=== PATIENT | female | born 1945 | race Caucasian/White ===

== ENCOUNTER 2018-10-19 10:57 | Inpatient (IN) | payer OTHER ==
[~2018-10-19] VITALS: Ht 154.9 cm; Wt 76.7 kg
[~2018-10-19 10:57] MED LIST: UNK HTN MED
--- NOTE | 2018-10-19 10:59 | NUR ---
PT BIBA ALS TO BED 11
[2018-10-19 11:01] VITALS: BP 136/72
--- NOTE | 2018-10-19 11:04 | NUR ---
Jocelyn mishra in [facility] - 10/19/18 at 1104 by [email or web address] PT BIBA TO BED 11
[2018-10-19] MEDS ORDERED: KETOROLAC 15 MG/ML VIAL IVP ONE (11:15)
--- NOTE | 2018-10-19 11:23 | NUR ---
73/F BIBA C/O L KNEE PAIN S/P FALL ONTO SIDEWALK. DEFORMITY NOTED ON L KNEE. 08/16 PAIN. DENIES HITTING HEAD OR LOC. NO OTHER COMPLAINTS. CMS INTACT. PER PT GOT FYNTANYL 50 MCQ VIA IV AT 10.40. BS 172. HX---DM, HTN, DEMENTIA MEDS---UNKNOWN Addendum: 10/19/18 at 1325 by [email or web address] Amendment undone in EDM - 10/19/18 at 1326 by [email or web address] HX : HTN, DM, DEMENTIA HOME MED: PATIENT & INTEL ANALYST CAN'T REMEMBER.
--- NOTE | 2018-10-19 11:29 | NUR ---
X RAY AT BEDSIDE.
--- NOTE | 2018-10-19 11:37 | NUR ---
REPORTED GIVEN TO VICKY BAJWA
--- NOTE | 2018-10-19 12:15 | NUR ---
[facility] : [phone].
[2018-10-19] MEDS ORDERED: ONDANSETRON 4 MG/2 ML VIAL IVP PRN (13:25)
[2018-10-19] MEDS ORDERED: DEXTROSE 50% 50 ML SYR IVP PRN (13:25)
[2018-10-19] MEDS ORDERED: LORazepam 2 MG/ML VIAL IVP PRN (13:25)
[2018-10-19] MEDS ORDERED: ACETAMINOPHEN 325 MG TAB PO PRN (13:25)
--- NOTE | 2018-10-19 14:20 | NUR ---
Patient will be admitted to care of DR HAYWARD. Admited to TELE. Will go to room 107A. Belongings list completed. Report to ALIYA QUIÑONES.
[2018-10-19] MEDS: NACL 0.9% 1,000 ML IV SCH (14:45)
--- NOTE | 2018-10-19 14:45 | NUR ---
PATIENT ARRIVED ON FLOOR VIA GURNEY, PATIENT ABLE TO TRANSFER HERSELF TO THE BED. PATIENT AOX3, FORGETFUL, HX OF DEMENTIA, DM, HTN. VS WNL. IV SITE PATENT, INTACT AND ASYMPTOMATIC. RESPIRATIONS EVEN AND UNLABORED ON ROOM AIR. CAREGIVER HUMBERTO MACNANDEZ AT BEDSIDE. EXPLAINED TO PATIENT AND CAREGIVER PLAN OF CARE, THEY VERBALIZED UNDERSTANDING. PATIENT ADMITTING DX IS L PATELLAR FX, HAS KNEE BRACE ON. MRSA SCREENING DONE, INITIAL ASSESSMENT DONE. ORIENTED PATIENT TO CALL LIGHT, BED, TV, BATHROOM AND VISITING HOURS. SAFETY PRECAUTIONS IN PLACE, CALL LIGHT WITHIN REACH, BED ON LOWEST SETTING WITH BRAKES AND ALARM ON, WILL CONTINUE TO MONITOR PATIENT.
[2018-10-19 15:00] VITALS: BP 151/66
[2018-10-19] MEDS: HYDROcodone/APAP 5/325 MG 1 TAB TAB PO PRN (15:20)
--- NOTE | 2018-10-19 15:40 | NUR ---
PATIENT FORGETFUL AND IMPULSIVE, USES THE CALL LIGHT LIBERALLY. ALL NEEDS MET AT THIS TIME, PATIENT VOIDED IN BEDPAN, PATIENT CLEANED UP. SAFETY PRECAUTIONS IN PLACE, CALL LIGHT WITHIN REACH, BED ALARM ON, WILL CONTINUE TO MONITOR PATIENT.
--- NOTE | 2018-10-19 15:40 | NUR ---
DR. BLUE, UPDATED HIM ON PATIENT'S CONDITION AND STATUS. HE SAID HE IS CONSULTING ON THE CASE AND WILL BE IN LATER TO SEE THE PATIENT. RN VERBALIZED UNDERSTANDING.
[2018-10-19 16:00] VITALS: BP 151/64
--- NOTE | 2018-10-19 16:40 | NUR ---
DR. BLUE IN TO SEE THE PATIENT. NEW ORDERS IN TO OBTAIN CONSENT FOR OPEN TREATMENT OF LEFT PATELLA FRACTURE. ORDERS NOTED AND WILL BE CARRIED ON.
[2018-10-19] MEDS: BLOOD GLUCOSE MONITORING 1 DEV DEV FS SCH ×2 (16:45→20:28)
--- NOTE | 2018-10-19 17:25 | NUR ---
PATIENT FOUND WITH IV OUT, IV CATHETER INTACT, MINIMAL BLEEDING. NEW IV INSERTED ON LEFT HAND 20G, PATIENT TOLERATED IT. PT C/O PAIN DUE TO KNEE, NORCO PRN GIVEN. SAFETY PRECAUTION IN PLACE, CALL LIGHT WITHIN REACH. WILL CONTINUE TO MONITOR PATIENT.
--- NOTE | 2018-10-19 17:45 | NUR ---
HUMBERTO HA, CAREGIVER WAS CALLED TO OBTAIN CONSENT OVER THE TELEPHONE. TIM POOLE RN SECOND WITNESS. PATIENT FORGETFUL AND KEEPS ON ATTEMPTING TO GET OUT OF BED. WILL CONTINUE TO MONITOR PATIENT.
--- NOTE | 2018-10-19 18:25 | NUR ---
DR BLUE CALLED TO REMIND RN TO FOLLOW UP WITH EKG, CXR, AND LABS. INFORMED DR. BLUE EKG DONE, CXR AND LABS PENDING, WITH CONSENT OBTAINED OVER THE TELEPHONE.
[2018-10-19 18:38] LABS: BASOPHILS # (AUTO) 0.1 K/uL (0.00-0.22); BASOPHILS % (AUTO) 0.5 % (0.0-2.0); EOSINOPHILS # (AUTO) 0.1 K/uL (0-0.4); EOSINOPHILS % (AUTO) 0.8 % (0.0-4.0); HEMATOCRIT 35.9 % (36-48); HEMOGLOBIN 11.7 g/dL (12.0-16.0); LYMPHOCYTES # (AUTO) 3.7 K/uL (2.5-16.5); LYMPHOCYTES % (AUTO) 25.9 % (20.5-51.1); MEAN CORPUSCULAR HEMOGLOBIN 28 pg (27-31); MEAN CORPUSCULAR HGB CONC 33 g/dL (33-37); MEAN CORPUSCULAR VOLUME 85.3 fL (80-94); MONOCYTES % (AUTO) 6.7 % (1.7-9.3); NEUTROPHILS # (AUTO) 9.4 K/uL (1.8-7.7); NEUTROPHILS % (AUTO) 66.1 % (42.2-75.2); PLATELET COUNT (AUTO) 301 K/uL (140-450); RED BLOOD CELL COUNT(AUTO) 4.21 MIL/uL (4.20-5.40); RED CELL DISTRIBUTION WIDTH 13.2 % (11.6-13.7); WHITE BLOOD COUNT (AUTO) 14.3 K/uL (4.8-10.8)
[2018-10-19 19:07] LABS: CARBON DIOXIDE 17.9 mmol/L (21-32); CHLORIDE 106 mmol/L (98-107); CREATININE 1.1 mg/dL (0.6-1.3); GLUCOSE 127 mg/dL (74-106); POTASSIUM 3.9 mmol/L (3.5-5.1); SODIUM SERUM 140 mmol/L (136-145); UREA NITROGEN, BLOOD 27 mg/dL (7-18)
[2018-10-19 19:19] LABS: PROTHROMBIN TIME 10.2 secs (10.8-13.4)
--- NOTE | 2018-10-19 19:27 | NUR ---
REPORT GIVEN TO CAREER GUIDANCE TECHNICIAN RN AT BEDSIDE FOR CONTINUITY OF CARE. PATIENT IN STABLE CONDITION, RESTING IN BED.
--- NOTE | 2018-10-19 19:28 | NUR ---
REPORT RECEIVED FROM AM NURSE AT BEDSIDE. PT IN STABLE CONDITION. AAOX4. INTRODUCED SELF TO PT. BOARD UPDATED. NO COMPLAINTS OF PAIN. NO SOB. IV SITE L HAND 20G RUNNING NS@80ML/HR PATENT AND INTACT. SKIN WARM, DRY, AND INTACT WITH NO OPEN WOUNDS. BED LOCKED IN LOW POSITION. CALL ZACARIAS WITHIN REACH. SAFETY PRECAUTIONS IN PLACE.
[2018-10-19 20:00] VITALS: BP 143/67
--- NOTE | 2018-10-19 20:24 | NUR ---
BS 104. NO INSULIN COVERAGE NEEDED.
--- NOTE | 2018-10-19 21:30 | NUR ---
PULMONARY GROUP CALLED DUE TO PT ASKING FOR SLEEP MEDICATION. TALKED TO DR. FULLER. NEW ORDER OF AMBIEN 5MG PO QHS FOR SLEEP. TORB.
[2018-10-19] MEDS: ZOLPIDEM 5 MG TAB PO PRN (22:17)
--- NOTE | 2018-10-19 22:17 | NUR ---
AMBIEN GIVEN FOR SLEEP. PT TOLERATED WELL.
[2018-10-20] VITALS: BP 131/68
--- NOTE | 2018-10-20 00:30 | NUR ---
PT SLEEPING COMFORTABLY IN BED SUPINE BUT AROUSEABLE. NO S/S OF DISTRESS NOTED. WILL CONTINUE TO MONITOR.
--- NOTE | 2018-10-20 02:15 | NUR ---
PT AWAKE AND ALERT. HAD CONCERNS ABOUT SURGERY TOMORROW. CONCERNS WERE ADDRESSED. PT WAS EDUCATED ABOUT THE SURGERY AND REASSURED ABOUT HER FEELINGS.
[2018-10-20] MEDS: NACL 0.9% 1,000 ML IV SCH ×2 (02:24→14:24)
--- NOTE | 2018-10-20 03:30 | NUR ---
PT SLEEPING COMFORTABLY BUT AROUSEABLE. NO S/S OF DISTRESS NOTED. NO COMPLAINTS OF PAIN. NO SOB. WILL CONTINUE TO MONITOR.
[2018-10-20 04:00] VITALS: BP 135/60
[2018-10-20] MEDS: BLOOD GLUCOSE MONITORING 1 DEV DEV FS SCH ×6 (05:37→21:21)
--- NOTE | 2018-10-20 05:37 | NUR ---
BS 111. NO INSULIN COVERAGE NEEDED.
[2018-10-20 06:44] LABS: BASOPHILS # (AUTO) 0.1 K/uL (0.00-0.22); BASOPHILS % (AUTO) 0.6 % (0.0-2.0); EOSINOPHILS # (AUTO) 0.2 K/uL (0-0.4); EOSINOPHILS % (AUTO) 2.1 % (0.0-4.0); HEMOGLOBIN 10.9 g/dL (12.0-16.0); LYMPHOCYTES # (AUTO) 3.7 K/uL (2.5-16.5); LYMPHOCYTES % (AUTO) 34.3 % (20.5-51.1); MEAN CORPUSCULAR HEMOGLOBIN 28 pg (27-31); MEAN CORPUSCULAR HGB CONC 33 g/dL (33-37); MEAN CORPUSCULAR VOLUME 85.3 fL (80-94); MONOCYTES # (AUTO) 0.9 K/uL (0.8-1.0); MONOCYTES % (AUTO) 8.7 % (1.7-9.3); NEUTROPHILS # (AUTO) 5.8 K/uL (1.8-7.7); NEUTROPHILS % (AUTO) 54.3 % (42.2-75.2); PLATELET COUNT (AUTO) 273 K/uL (140-450); RED BLOOD CELL COUNT(AUTO) 3.87 MIL/uL (4.20-5.40); RED CELL DISTRIBUTION WIDTH 13.2 % (11.6-13.7); WHITE BLOOD COUNT (AUTO) 10.7 K/uL (4.8-10.8)
[2018-10-20 07:10] LABS: ANION GAP 15.8 (8-16); ASPARTATE AMINOTRANSFERASE 18 U/L (15-37); CARBON DIOXIDE 21.2 mmol/L (21-32); CHLORIDE 108 mmol/L (98-107); CREATININE 0.9 mg/dL (0.6-1.3); GLUCOSE 114 mg/dL (74-106); SODIUM SERUM 141 mmol/L (136-145); TOTAL BILIRUBIN 0.6 mg/dL (0.0-1.0); UREA NITROGEN, BLOOD 22 mg/dL (7-18)
[2018-10-20 07:24] LABS: MAGNESIUM 1.8 mg/dL (1.8-2.4)
--- NOTE | 2018-10-20 07:25 | NUR ---
REPORT GIVEN TO AM NURSE AT BEDSIDE. PT IN STABLE CONDITION.
--- NOTE | 2018-10-20 07:30 | NUR ---
RECEIVED PT FROM WELDING SYSTEMS AND EQUIPMENT REPAIRER NURSEBRIAN, PT IS AWAKE AND LYING ON THE BED WITH SIDE RAILS UP AND CALL LIGHT WITHIN REACH, FALL PRECAUTION INITIATED, PT HAS A LEFT HAND G. 20 IV LINE WITH NS AT 80ML/HR INFUSING, PT HASA A LEFT KNEE PATELLAR FRACTURE, PT DENERIS PAIN AT THIS TIME AND NO SIGN OF DISTRESS NOTED. WILL MONITOR PT.
--- NOTE | 2018-10-20 07:45 | NUR ---
PT IS OFF THE UNIT AND WAS TAKEN BY OR NURSES, SWAPNA FOR AN OPEN REDUCTION OF THE PATELLAR FRACTURE, PT IS AWAKE AND V/S ARE STABLE.
[2018-10-20 08:00] VITALS: BP 143/78
[2018-10-20] MEDS ORDERED: ceFAZolin 1,000 MG VIAL ONE ×2 (08:11→10:49)
--- NOTE | 2018-10-20 08:26 | NUR ---
PATIENT HAS BEEN SCREENED AND CATEGORIZED MODERATE NUTRITION RISK. PATIENT WILL BE SEEN WITHIN 3-5 DAYS OF ADMISSION. 10/22/18 10/24/[address]
[2018-10-20] MEDS ORDERED: fentaNYL 0.05 MG/ML VIAL ONE (08:41)
[2018-10-20] MEDS ORDERED: HYDROmorphone 1 MG/ML AMP IVP PRN (09:05)
[2018-10-20] MEDS ORDERED: ONDANSETRON 4 MG/2 ML VIAL IVP PRN (09:05)
[2018-10-20 10:48] LABS: BILIRUBIN,URINE NEGATIVE (NEGATIVE); BLOOD, URINE NEGATIVE (NEGATIVE); COLOR,URINE YELLOW (YELLOW); LEUKOCYTE ESTERASE ,URINE 1+ (NEGATIVE); NITRITE, URINE POSITIVE (NEGATIVE); PH,URINE 6.5 (5.0-9.0); UGLUCOSE NEGATIVE (NEGATIVE)
[2018-10-20 10:58] LABS: APPEARANCE,URINE CLOUDY (CLEAR)
[2018-10-20 11:00] LABS: RBC,URINE 0-5 (RARE) /HPF (0-5)
[2018-10-20 11:01] LABS: WBC,URINE 60-80 /HPF (0-5)
--- NOTE | 2018-10-20 11:02 | NUR ---
PT IS BACK TO THE ROOM FROM THE OPEN TX OF THE PATELLAR FRACTURE, V/S TAKEN AND BP IS 143/67, RESPIRATION AT 18, O2 SATURATION AT 97% AND PULSE IS 67, PT HAS A ESCOTO CATHETER IN PLACE AND DRAINED 200ML OF URINE WHEN IN PACU, PT IS AWAKE AND ALERT AND NO SIGN OF DISTRESS, WILL CONTINUE TO MONITOR PT.
[2018-10-20 12:00] VITALS: BP 140/63
[2018-10-20] MEDS: MORPHINE SULFATE 4 MG/ML SYR IVP PRN ×2 (12:01→18:32)
--- NOTE | 2018-10-20 12:12 | NUR ---
PT C/O PAIN RATE OF 9/10 AND PAIN MEDICATION WAS GIVEN VIA IV PUSH AND PT TOLERATED IT, V/S TAKEN AND WITHIN NORMAL LIMIT. WILL CONTINUE TO MONITOR PT.
--- NOTE | 2018-10-20 12:22 | NUR ---
PT IS AWAKE AND FAMILY ON THE BEDSIDE, PT WAS ASSISTED T9O EAT HER LUNCH. WILL MONITOR PT.
--- NOTE | 2018-10-20 14:00 | NUR ---
MINDI ESPAÑA CAME TO THE PT'S ROOM AND SPOKE TO THE PT AND CHECKED ON PT.
--- NOTE | 2018-10-20 14:35 | NUR ---
RECEIVED A CALL FROM JENNIE FROM [place]. IF PATIENT NEEDS SNF, SHE IS GIVING ME AUTH FOR [facility], [id number]. ALSO THE AUTH FOR [facility], IS SAME [id number]. SHE SAID TO LET HER KNOW ON TUESDAY IF SHE GOES TO ANOTHER SNF I CALLED [facility] AND LEFT A MESSAGE FOR ADMISSIONS. [phone].
--- NOTE | 2018-10-20 15:11 | NUR ---
SPOKE WITH LUCI AT [facility]. SHE SAID WHEN PATIENT TO BE DISCHARGED, SHE WOULD NEED THE P.T. NOTES. SHE ALSO SAID OVER THE WEEKEND, SHE CAN BE REACHED ON HER CELL, . FAX TO [facility] IS [phone]
[2018-10-20 16:00] VITALS: BP 169/81
--- NOTE | 2018-10-20 17:28 | NUR ---
PT IS AWAKE AND BLOOD GLUCOSE CHECK DONE AND RESULT IS 145, NO INSULIN COVERAGE NEEDED, V/S TAKEN AND BP REULT IS HIGH, PAGED DR. OBREGON TO UPDATE MD OF THE BP. AWAITING MD CALL BACK
--- NOTE | 2018-10-20 17:31 | NUR ---
DR. OBREGON CALLED BACK AND INFORMED MD OF THE PT'S HIGH BP RESULT, DR. OBREGON MADE A T. O. TO GIVE PT LABETALOL 100MG PO X 1, READ BACK AND VERIFIED AND WILL CARRY OUT MD ORDER.
[2018-10-20] MEDS ORDERED: LABETALOL 100 MG TAB PO SCH (17:45)
--- NOTE | 2018-10-20 19:10 | NUR ---
ENDORSED PT OT CIGAR INSPECTOR NURSE, BIBIANA, FOR CONTINUITY OF CARE, PT TIS STABLE AT THIS TIME.
--- NOTE | 2018-10-20 19:11 | NUR ---
RECEIVED BEDSIDE REPORT FORM DAY SHIFT NURSE JENNIFER RN, PT STABLE, NO DISTRESS NOTED, IV TO L HAND 20G PATENT, INTACT, INFUSING NS @ 80ML/HR, INFUSING WELL, PT ON ROOM AIR NO SOB, WOUND DRESSING INTACT, WRAPPED WITH DEBRA BANDAGE AND KNEE IMMOBILIZER, INITIAL ASSESSMENT DONE, ALL SAFETY PRECAUTION MET, CALL LIGHT WITHIN REACH, WILL CONTINUE TO MONITOR.
[2018-10-20 20:00] VITALS: BP 148/74
[2018-10-20] MEDS: INSULIN LISPRO SLIDING SCALE 100 UNITS/ML VIAL SUBQ PRN (21:22)
--- NOTE | 2018-10-20 21:22 | NUR ---
CHECKED PT BLOOD SUGAR 185, INSULIN PER PROTOCOL GIVEN PT TOLERATED WELL, NO DISTRESS NOTED, CALL LIGHT WITHIN REACH, WILL CONTINUE TO MONITOR.
[2018-10-20] MEDS: ZOLPIDEM 5 MG TAB PO PRN (23:33)
--- NOTE | 2018-10-20 23:33 | NUR ---
PT UNABLE TO SLEEP, KASHIEN ORDERED ADMINISTERED, PT TOLERATED WELL, NO DISTRESS NOTED, CALL LIGHT WITHIN REACH, WILL CONTINUE TO MONITOR.
[2018-10-21] VITALS: BP 156/61
[2018-10-21] MEDS: NACL 0.9% 1,000 ML IV SCH ×2 (03:28→15:24)
[2018-10-21] MEDS: MORPHINE SULFATE 4 MG/ML SYR IVP PRN ×3 (03:53→20:22)
--- NOTE | 2018-10-21 03:53 | NUR ---
CHECKED ON PT, PT HAVING PAIN 10/10, PAIN MEDICATION ADMINISTERED, PT TOLERATED WELL, NO DISTRESS NOTED, CALL LIGHT WITHIN REACH, WILL CONTINUE TO MONITOR.
[2018-10-21 03:59] VITALS: BP 157/69
[2018-10-21] MEDS: INSULIN LISPRO SLIDING SCALE 100 UNITS/ML VIAL SUBQ PRN ×3 (06:10→20:21)
[2018-10-21] MEDS: BLOOD GLUCOSE MONITORING 1 DEV DEV FS SCH ×4 (06:10→20:27)
--- NOTE | 2018-10-21 07:30 | NUR ---
ENDORSED PT TO BELKYS RN, PT STABLE, NO DISTRESS NOTED, CALL LIGHT WITHIN REACH.
--- NOTE | 2018-10-21 07:31 | NUR ---
RECEIVED REPORT FROM PM NURSE AT BEDSIDE. PT IS POST OP FOR ORIF FOR LEFT LEG SINCE YESTERDAY. PT IS ON FALL RISK, PT HAS HX DEMENTIA. HAS FC IN PLACE PER DR BLUE ORDER TO KEEP FC IN PLACE. PT IS ON CONTACT ISOLATION FOR HX ESBL IN URINE. PT AOX2, PLACE ON FALL RISK PRECAUTION. HAS LFT HAND 22 G, NS INFUSING AT 80 ML/HR. PT IS ON CCHO 60 GM DIET. PLACED CALL LIGHT WITHIN PT REACH. INFORMED HER TO USE CALL LIGHT FOR NAY HELP. ALL SAFETY MEASURE IN PLACE. WILL CONTINUE TO MONITOR PT.
[2018-10-21 08:00] VITALS: BP 162/66
[2018-10-21] MEDS: ENOXAPARIN 40 MG/0.4 ML SYR SUBQ SCH (09:39)
[2018-10-21 12:00] VITALS: BP 179/82
[2018-10-21] MEDS: HYDROcodone/APAP 5/325 MG 1 TAB TAB PO PRN (12:38)
--- NOTE | 2018-10-21 13:00 | NUR ---
CHECKED ON PT. HAS FACIAL GRIMACING, THOUGH DENIES PAIN. BP IS 179/82, ADMINISTER NORCO FOR PAIN MANAGEMENT. INFORMED HER THAT WILL REASSESS PAIN IN HOUR. DR OBREGON NOTIFIED OF HER HIGH BP. STATES WILL PUT SOME ORDER FOR BP. PER AIR CARGO SPECIALIST HUMBERTO, PT TAKES BP MEDS AT HOME. PH # [phone]. INFORMED HER THAT WILL TALK TO MD ABOUT HER MEDS. ALL SAEFTY MEASURE IN PLACE. WILL CONTINUE TO MONITOR PT.
[2018-10-21] MEDS ORDERED: amLODIPine 5 MG TAB PO SCH (14:00)
--- NOTE | 2018-10-21 14:00 | NUR ---
Marketing Writer Notes: I contacted Kristen from [facility] at to discuss Patient status, Per Kristen Patient has been accepted to their facility for when she is ready for discharge. Kristen stated needing the P.T eval and notes fax to her at . This underwriter mortgage loan agreed to send patient information. Per Kristen Patient will discharge to their facility and requested to be call by the staff/Charge nurse tomorrow 10/22/18 if Patient is ready for discharge bf weekend to coordinate patient's discharge. [phone] cell.
--- NOTE | 2018-10-21 14:50 | NUR ---
CHECKED ON PT. ADMINISTERED BP MEDS ORDERED. PT APPEARS CONFUSED, INFORMED HER THAT SHE IS AT HOSPITAL. GAVE HER WATER. REPOSITIONED HER. ALL SAFETY MEASURE IN PLACE. WILL CONTINUE TO MONITOR PT.
--- NOTE | 2018-10-21 15:30 | NUR ---
Multi Punch Operator Notes: I faxed Patient's P.T Notes to Kristen from [facility] as requested earlier at . I contacted Kristen at to confirm fax received. Kristen confirmed of having Pt. Information.
[2018-10-21 16:00] VITALS: BP 163/73
--- NOTE | 2018-10-21 16:31 | NUR ---
CHECKED ON PT. REPOSITIONED HER. EDUCATED PT NOT TO PULL OUT ANYTHING, PT HAS EPISODES OF DEMENTIA, TALKS RANDOM THINGS. BS RECORDED 127, NO INSULIN COVERAGE REQUIRED. ALL SAFETY MEASURE IN PLACE. WILL CONTINUE TO MONITOR PT.
--- NOTE | 2018-10-21 19:20 | NUR ---
ENDORSED PT TO PM NURSE. PT IN STABLE CONDITION.
--- NOTE | 2018-10-21 19:21 | NUR ---
RECEIVED REPORT FORM DAY SHIFT NURSE. PT LYING IN BED. AAOX2. DAUGHTER AT BEDSIDE. NO C/O PAIN OR SOB. PT HAS LEFT LEG IMMOBILIZER. IV TO LEFT FA #22G, NS AT 80 ML/HR INFUSING WELL. ESCOTO CATH IN PLACE DRAINING LIGHT YELLOW URINE. SAFETY PRECAUTION IN PLACE. CALL LIGHT WITHIN REACH.
[2018-10-21 20:00] VITALS: BP 154/79
--- NOTE | 2018-10-21 21:00 | NUR ---
BLOOD SUGAR CHECKED 171. 2 UNITS OF HUMALOG SUBQ GIVEN.
--- NOTE | 2018-10-21 23:45 | NUR ---
PT SLEEPING BUT EASILY AROUSABLE. NO S/S OF PAIN OR RESP DISTRESS. SAFETY PRECAUTION IN PLACE.
[2018-10-22] VITALS: BP 147/76
--- NOTE | 2018-10-22 02:00 | NUR ---
PT SLEEPING.RESP EVEN AND UNLABORED. NO S/S OF PAIN. NO S/S OF RESP DISTRESS. IVF INFUSING WELL.
--- NOTE | 2018-10-22 03:30 | NUR ---
PT SLEEPING. NO S/S OF ACUTE DISTRESS. FALL PRECAUTION IN PLACE. CALL LIGHT WITHIN REACH.
[2018-10-22] MEDS: NACL 0.9% 1,000 ML IV SCH ×2 (03:54→10:58)
[2018-10-22 04:00] VITALS: BP 150/81
--- NOTE | 2018-10-22 05:45 | NUR ---
PT PULLED OUT IV TO LEFT FA. MINIMAL BLEEDING NOTED. DRESSING APPLIED. INSERTED NEW IV LINE TO WRIST WRIST #22G. GOOD FLUSH AND BLOOD RETURN. PT TOLERATED PROCEDURE WELL.
[2018-10-22] MEDS: INSULIN LISPRO SLIDING SCALE 100 UNITS/ML VIAL SUBQ PRN ×2 (06:23→11:44)
[2018-10-22] MEDS: BLOOD GLUCOSE MONITORING 1 DEV DEV FS SCH ×3 (06:24→16:55)
--- NOTE | 2018-10-22 06:28 | NUR ---
BLOOD SUGAR CHECKED 169. 2 UNITS OF HUMALOG SUBQ GIVEN
--- NOTE | 2018-10-22 07:25 | NUR ---
ENDORSED PT TO DAY SHIFT NURSE. PT IN STABLE CONDITION.
--- NOTE | 2018-10-22 07:26 | NUR ---
RECEIVED REPORT FROM PM NURSE AT BEDSIDE. PT LYING ON HER BED. PT HAS IV ON RT HAND 22 G, IVF INFUSING AT 80 ML/HR. FOL;EY CATHETER IN PLACE. PT ON CONTACT ISOLATION FOR ESBL IN URINE. PT IS ON FALL RISK. PT HAS EPISODES OF CONFUSION. ALL SAFETY MEASURE I PLACE. BED AT LOWER POSITION. WILL CONTINUE TO MONITOR PT.
[2018-10-22 07:47] VITALS: BP 140/67
[2018-10-22] MEDS ORDERED: amLODIPine 5 MG TAB PO SCH ×2 (09:00)
[2018-10-22] MEDS: ENOXAPARIN 40 MG/0.4 ML SYR SUBQ SCH (09:01)
--- NOTE | 2018-10-22 10:59 | NUR ---
CHECKED ON PT. LYING ON HER BED. NO SIGN OF DISTRESS. NO FAIL GRIMICING. DENIES ANY PAIN. ASSESSED LEFT FOOT, CAP REFILL LESS THAN 2 MIN. NE SWELLING, NO REDNESS OBSERVED. ADMINISTERED IVF TO PT ORDERED. ALL SAFTEY MEASURE IN PLACE. SEARCH ENGINE OPTIMIZATION CONSULTANT VISITED PT. INFORMED HER THAT PT EATS LESS AMOUNT OF FOOD. STATES WILL BE BACK TIME OF HER LUNCH. WILL CONTINUE TO MONITOR PT.
[2018-10-22] MEDS: MORPHINE SULFATE 4 MG/ML SYR IVP PRN (11:34)
--- NOTE | 2018-10-22 11:48 | NUR ---
CHECKED ON PT. PT MOANING WITH PAIN. ASKING FOR PAIN MEDS. ADMINISTERED PAIN MEDS TO PT. CHECKED BS 160. ADMINISTERED 2 UNITS OF INSULIN. ALL SAFETY MEASURE IN PLACE. WILL CONTINUE TO MONITOR PT.
[2018-10-22 12:19] VITALS: BP 149/69
--- NOTE | 2018-10-22 12:33 | NUR ---
CHECKED ON PT . NO SIGN OF DISTRESS NOTED PT EATING HER FOOD. JOURNEYMAN PIPE FITTER AT HER BEDSIDE. HELPING PT TO EAT FOOD. PT TOLERATING WELL. WILL CONTINUE TO MONITOR PT.
--- NOTE | 2018-10-22 14:11 | NUR ---
CHECKED ON PT . RESTING ON HER BED. PT HAS EPISODES OF CONFUSION. NEEDS CONTINUOUS REINFORCEMENT OF PLACE AND TIME. PT TIRES GETTING OUT OF BED. INFORMED HER TO STAY IN BED. PT REPOSITIONED , BED AT LOWER POSITION, CALL LIGHT WITHIN PT REACH. WILL CONTINUE TO MONITOR PT.
[2018-10-22] MEDS ORDERED: LOV40I SUBQ (14:50)
[2018-10-22] MEDS ORDERED: ACET-9525 PO (14:50)
[2018-10-22] MEDS ORDERED: AMLO5TAB4 PO (14:50)
[2018-10-22] MEDS ORDERED: ZOLP5TAB1 PO (14:50)
[2018-10-22] MEDS ORDERED: ACET-1182 PO (14:50)
[2018-10-22] MEDS ORDERED: ONDA2SOL45 IVP (14:50)
[2018-10-22] MEDS ORDERED: MORP4SOL10 IVP (14:50)
[2018-10-22] MEDS ORDERED: ATI2I IVP (14:50)
[2018-10-22] MEDS ORDERED: HUMSLIDE SUBQ (14:50)
--- NOTE | 2018-10-22 15:40 | NUR ---
CALLED DR BLUE REGARDING PT'S DISCHARGE ORDER BY DR OBREGON. DR. BLUE OKAY WITH IT. GAVE PHONE NUMBER [phone] AND ASKED TO MAKE APPOINTMENT NEXT WEEK TUESDAY OR TUESDAY AT HIS OFFICE. PER DR BLUE, PT KNEE TO BE REMAIN WITH BANDAGE WITH IMMOBILIZER, WILL SEE THE WOUND AT HIS OFFICE HIMSELF. PT TO GO TO [facility], CHARGE NURSE TO CONTACT THE REHAB CENTER. WILL CONTINUE TO MONITOR PT.
[2018-10-22 16:15] VITALS: BP 143/70
--- NOTE | 2018-10-22 16:15 | NUR ---
CALLED [facility] , TO GIVE REPORT FOR PT AT [phone]. NO RESPONSE. WILL CALL AGAIN.
--- NOTE | 2018-10-22 16:25 | NUR ---
CALLED [facility] AND SPOKE TO LUCI, SHE GAVE ME ROOM NUMBER 103 BED 1 STATION . ARRANGED [facility].
--- NOTE | 2018-10-22 16:57 | NUR ---
CALLED CAREGIVER HUMBERTO HA AT [phone]. INFORMED HER THAT PT IS GOING TO [facility] FOR REHABILITATION FOR HER KNEE. STATES WILL BE AT HOSPITAL AT 1830.
--- NOTE | 2018-10-22 17:30 | NUR ---
CALLED REHAB C[facility] AND GAVE REPORT TO ISHMAEL FIGUEREDO. INFORMED HER TO CALL DR BLUE OFFICE TO MAKE APPOINTMENT FOR TUESDAY OR TUESDAY. VERBALIZED UNDERSTANDING. ASKED TO DC ESCOTO AND IV ACCESS. WILL DC ESCOTO CATHETER AND IV ACCESS AT TIME OF TIRE BEADER MAKER.
--- NOTE | 2018-10-22 18:15 | NUR ---
[facility], [facility] TRANSFERRED TO THE [facility]. PTS SON AT THE BEDSIDE. SIGNED THE DC PAPER AND DC PACKET WITH SON. COMPUTER SYSTEMS ENGINEER HUMBERTO HA AT THE BEDSIDE WELL. INFORMED HER THAT HER CONTACT IS PROVIDED TO REHAB CENTER, MIGHT CALL HER REGARDING MEDICATION, TO PROVIDE WITH INFORMATION IF GET CALL FROM REHAB CENTER. PTS SON VERBALIZED UNDERSTANDING. STATES WILL GO TO REHAB [facility]ENTER TO VISIT AND KNOW THE PLACE. PT FULL CODE, FC DISCONTINUED, IV ACCESS DC PER REHAB REHAB NURSE ASKED TO DC JEVON. PT WENT WITH LEG IMMOBILIZER. PT WAS COMFORTABLE AND STABLE AT TIME OF DISCHARGE.
== END 2018-10-22 18:15 | DRG 488 ==
LOC: MED 10:57 → MTU 13:24
PROVIDERS: ADMIT Hospitalist; ATTEND Hospitalist
PROC: 0QBF0ZZ Excision of Left Patella, Open Approach (ICD-10-PCS; principal; 2018-10-22)
PROC: 0LQR0ZZ Repair Left Knee Tendon, Open Approach (ICD-10-PCS; 2018-10-22)
DX: S82.042A Displaced comminuted fracture of left patella, initial encounter for closed fracture (principal); E44.0 Moderate protein-calorie malnutrition; I10 Essential (primary) hypertension; E11.9 Type 2 diabetes mellitus without complications; F03.90 Unspecified dementia, unspecified severity, without behavioral disturbance, psychotic disturbance, mood disturbance, and anxiety; D72.829 Elevated white blood cell count, unspecified; W01.0XXA Fall on same level from slipping, tripping and stumbling without subsequent striking against object, initial encounter; S76.112A Strain of left quadriceps muscle, fascia and tendon, initial encounter; Z68.32 Body mass index [BMI] 32.0-32.9, adult; Z88.0 Allergy status to penicillin; Z88.2 Allergy status to sulfonamides; Z79.84 Long term (current) use of oral hypoglycemic drugs; Y93.89 Activity, other specified; Y92.89 Other specified places as the place of occurrence of the external cause; Y99.8 Other external cause status
CPT/HCPCS: 27560; 36415; 71045; 73562; 80048; 80053; 81001; 82948; 83735; 85025; 85610; 87081; 87086; 87186; 93005; 96374; 97110; 99285; J0690; J1650; J1815; J1885; J2060; J2270; J3010; J7030; J7060; Q0092

== ENCOUNTER 2018-11-24 12:17 | Inpatient (IN) | payer OTHER ==
[~2018-11-24] VITALS: Ht 154.9 cm; Wt 63.0 kg
[~2018-11-24 12:17] MED LIST changes: +ACET-1182 PO; +ACET-9525 PO; +AMLO5TAB6 PO; +ATI2I IVP; +HUMSLIDE SUBQ; +LOV40I SUBQ; +MORP4SOL10 IVP; +ONDA2SOL45 IVP; +ZOLP5TAB1 PO
[2018-11-24 12:30] VITALS: BP 145/76
[2018-11-24] MEDS ORDERED: NACL 0.9% 500 ML IV SCH (12:48)
[2018-11-24 13:38] LABS: BASOPHILS # (AUTO) 0.1 K/uL (0.00-0.22); BASOPHILS % (AUTO) 0.6 % (0.0-2.0); EOSINOPHILS # (AUTO) 0.1 K/uL (0-0.4); EOSINOPHILS % (AUTO) 0.3 % (0.0-4.0); HEMATOCRIT 31.5 % (36-48); HEMOGLOBIN 9.9 g/dL (12.0-16.0); LYMPHOCYTES # (AUTO) 2.8 K/uL (2.5-16.5); LYMPHOCYTES % (AUTO) 16.4 % (20.5-51.1); MEAN CORPUSCULAR HEMOGLOBIN 26 pg (27-31); MEAN CORPUSCULAR HGB CONC 31 g/dL (33-37); MEAN CORPUSCULAR VOLUME 82.7 fL (80-94); MONOCYTES # (AUTO) 1.4 K/uL (0.8-1.0); MONOCYTES % (AUTO) 8.4 % (1.7-9.3); NEUTROPHILS # (AUTO) 12.7 K/uL (1.8-7.7); NEUTROPHILS % (AUTO) 74.3 % (42.2-75.2); PLATELET COUNT (AUTO) 644 K/uL (140-450); RED BLOOD CELL COUNT(AUTO) 3.81 MIL/uL (4.20-5.40); RED CELL DISTRIBUTION WIDTH 13.6 % (11.6-13.7); WHITE BLOOD COUNT (AUTO) 17.1 K/uL (4.8-10.8)
[2018-11-24 13:53] LABS: ANION GAP 16.8 (8-16); CARBON DIOXIDE 22.8 mmol/L (21-32); CHLORIDE 95 mmol/L (98-107); GLUCOSE 260 mg/dL (74-106); POTASSIUM 3.6 mmol/L (3.5-5.1); SODIUM SERUM 131 mmol/L (136-145); UREA NITROGEN, BLOOD 28 mg/dL (7-18)
[2018-11-24 13:56] LABS: PROTHROMBIN TIME 12.1 secs (10.8-13.4)
[2018-11-24] MEDS ORDERED: CLINDAMYCIN 900 MG in DEXTROSE 5% 100 ML IV ONE (14:00)
[2018-11-24 14:07] LABS: ALBUMIN 2.2 g/dL (3.4-5.0); ASPARTATE AMINOTRANSFERASE 80 U/L (15-37); TOTAL BILIRUBIN 1.3 mg/dL (0.0-1.0)
[2018-11-24] MEDS ORDERED: CLINDAMYCIN 900 MG/6 ML VIAL IV ONE (14:14)
[2018-11-24] MEDS ORDERED: NACL 0.9% 1,500 ML IV ONE (15:05)
[2018-11-24] MEDS ORDERED: LEVOFLOXACIN 500 MG/D5W PREMIX 100 ML IV ONE (15:05)
[2018-11-24 15:13] LABS: APPEARANCE,URINE SL CLOUDY (CLEAR); BILIRUBIN,URINE NEGATIVE (NEGATIVE); BLOOD, URINE 1+ (NEGATIVE); COLOR,URINE YELLOW (YELLOW); LEUKOCYTE ESTERASE ,URINE 3+ (NEGATIVE); NITRITE, URINE NEGATIVE (NEGATIVE); UGLUCOSE NEGATIVE (NEGATIVE)
[2018-11-24 15:17] LABS: RBC,URINE 11-20 (MOD) /HPF (0-5); WBC,URINE 80-100 /HPF (0-5)
[2018-11-24] MEDS ORDERED: LOV40I SUBQ (16:33)
[2018-11-24] MEDS ORDERED: DIPH-631 PO (16:33)
[2018-11-24] MEDS ORDERED: LORA10TA19 PO (16:33)
[2018-11-24] MEDS ORDERED: GABA300C PO (16:33)
[2018-11-24] MEDS ORDERED: CALC-784 PO (16:33)
[2018-11-24] MEDS ORDERED: ATOR40TA PO (16:33)
[2018-11-24] MEDS ORDERED: ACETAMINOPHEN 325 MG TAB PO PRN (17:05)
[2018-11-24] MEDS ORDERED: ONDANSETRON 4 MG/2 ML VIAL IVP PRN (17:05)
[2018-11-24] MEDS ORDERED: METO50TE2 PO (17:25)
[2018-11-24] MEDS: LACTATED RINGERS 1,000 ML IV SCH (18:00)
[2018-11-24 19:25] VITALS: BP 141/74
[2018-11-24] MEDS ORDERED: VANCOMYCIN PER PHARMACY MC PRN (20:50)
[2018-11-24] MEDS ORDERED: VANCOMYCIN 1GM/DEXT 5% PREMIX 200 ML IV ONE ×2 (22:00→23:30)
[2018-11-24] MEDS ORDERED: VANCOMYCIN 1,000 MG VIAL ONE (22:46)
[2018-11-24] MEDS ORDERED: DEXTROSE 50% 50 ML SYR IVP PRN (23:25)
[2018-11-24] MEDS: traMADol 50 MG TAB PO PRN (23:27)
[2018-11-25] VITALS: BP 141/74
[2018-11-25] MEDS: BLOOD GLUCOSE MONITORING 1 DEV DEV FS SCH ×4 (06:24→21:45)
[2018-11-25] MEDS ORDERED: LIDOCAINE MPF 1% - 5 mL VIAL 5 ML ONE (07:34)
[2018-11-25 08:00] VITALS: BP 147/69
[2018-11-25 08:50] LABS: BASOPHILS # (AUTO) 0.1 K/uL (0.00-0.22); BASOPHILS % (AUTO) 0.5 % (0.0-2.0); EOSINOPHILS # (AUTO) 0.1 K/uL (0-0.4); EOSINOPHILS % (AUTO) 0.4 % (0.0-4.0); HEMATOCRIT 29.6 % (36-48); HEMOGLOBIN 9.8 g/dL (12.0-16.0); LYMPHOCYTES # (AUTO) 2.4 K/uL (2.5-16.5); LYMPHOCYTES % (AUTO) 15.4 % (20.5-51.1); MEAN CORPUSCULAR HEMOGLOBIN 27 pg (27-31); MEAN CORPUSCULAR HGB CONC 33 g/dL (33-37); MONOCYTES # (AUTO) 1.1 K/uL (0.8-1.0); MONOCYTES % (AUTO) 6.9 % (1.7-9.3); NEUTROPHILS # (AUTO) 11.7 K/uL (1.8-7.7); NEUTROPHILS % (AUTO) 76.8 % (42.2-75.2); PLATELET COUNT (AUTO) 587 K/uL (140-450); RED BLOOD CELL COUNT(AUTO) 3.61 MIL/uL (4.20-5.40); RED CELL DISTRIBUTION WIDTH 13.8 % (11.6-13.7); WHITE BLOOD COUNT (AUTO) 15.2 K/uL (4.8-10.8)
[2018-11-25 09:19] LABS: ALBUMIN 1.9 g/dL (3.4-5.0); ANION GAP 15.4 (8-16); CARBON DIOXIDE 23.2 mmol/L (21-32); CHLORIDE 98 mmol/L (98-107); CREATININE 0.7 mg/dL (0.6-1.3); GLUCOSE 178 mg/dL (74-106); POTASSIUM 3.6 mmol/L (3.5-5.1); SODIUM SERUM 133 mmol/L (136-145); TOTAL BILIRUBIN 1.3 mg/dL (0.0-1.0); UREA NITROGEN, BLOOD 15 mg/dL (7-18)
[2018-11-25] MEDS: ATORVASTATIN 20 MG TAB PO SCH (09:25)
[2018-11-25] MEDS: amLODIPine 5 MG TAB PO SCH (09:25)
[2018-11-25] MEDS: GABAPENTIN 100 MG CAP PO SCH ×3 (09:26→17:20)
[2018-11-25] MEDS: METOPROLOL SUCCINATE 50 MG TABER PO SCH (09:27)
[2018-11-25 09:35] LABS: ASPARTATE AMINOTRANSFERASE 59 U/L (15-37)
[2018-11-25] MEDS: traMADol 50 MG TAB PO PRN ×2 (11:48→22:54)
[2018-11-25] MEDS: INSULIN LISPRO SLIDING SCALE 100 UNITS/ML VIAL SUBQ PRN ×3 (11:54→22:55)
[2018-11-25] MEDS: LACTATED RINGERS 1,000 ML IV SCH (14:00)
[2018-11-25] MEDS: LEVOFLOXACIN 250 MG/D5 PREMIX 50 ML IV SCH (15:47)
[2018-11-25 16:00] VITALS: BP 145/67
[2018-11-25 20:00] VITALS: BP 138/75
[2018-11-25] MEDS: VANCOMYCIN 1GM/DEXT 5% PREMIX 200 ML IV SCH (20:54)
[2018-11-25] MEDS ORDERED: VANCOMYCIN 1,000 MG VIAL ONE (20:54)
[2018-11-26] MEDS: BLOOD GLUCOSE MONITORING 1 DEV DEV FS SCH ×4 (06:31→20:45)
[2018-11-26 07:02] LABS: BASOPHILS # (AUTO) 0.1 K/uL (0.00-0.22); BASOPHILS % (AUTO) 0.6 % (0.0-2.0); EOSINOPHILS # (AUTO) 0.2 K/uL (0-0.4); EOSINOPHILS % (AUTO) 1.3 % (0.0-4.0); HEMATOCRIT 27.8 % (36-48); HEMOGLOBIN 8.9 g/dL (12.0-16.0); LYMPHOCYTES # (AUTO) 2.6 K/uL (2.5-16.5); LYMPHOCYTES % (AUTO) 19.5 % (20.5-51.1); MEAN CORPUSCULAR HEMOGLOBIN 26 pg (27-31); MEAN CORPUSCULAR HGB CONC 32 g/dL (33-37); MEAN CORPUSCULAR VOLUME 81.7 fL (80-94); MONOCYTES # (AUTO) 1.1 K/uL (0.8-1.0); MONOCYTES % (AUTO) 8.5 % (1.7-9.3); NEUTROPHILS # (AUTO) 9.3 K/uL (1.8-7.7); NEUTROPHILS % (AUTO) 70.1 % (42.2-75.2); PLATELET COUNT (AUTO) 542 K/uL (140-450); RED BLOOD CELL COUNT(AUTO) 3.41 MIL/uL (4.20-5.40); RED CELL DISTRIBUTION WIDTH 13.9 % (11.6-13.7); WHITE BLOOD COUNT (AUTO) 13.3 K/uL (4.8-10.8)
[2018-11-26 08:00] VITALS: BP 137/71
[2018-11-26 08:21] LABS: ALBUMIN 1.7 g/dL (3.4-5.0); ANION GAP 12.9 (8-16); ASPARTATE AMINOTRANSFERASE 46 U/L (15-37); CARBON DIOXIDE 22.6 mmol/L (21-32); CHLORIDE 101 mmol/L (98-107); CREATININE 0.7 mg/dL (0.6-1.3); GLUCOSE 157 mg/dL (74-106); POTASSIUM 3.5 mmol/L (3.5-5.1); SODIUM SERUM 133 mmol/L (136-145); TOTAL BILIRUBIN 1.1 mg/dL (0.0-1.0); UREA NITROGEN, BLOOD 15 mg/dL (7-18)
[2018-11-26] MEDS: ATORVASTATIN 20 MG TAB PO SCH (10:00)
[2018-11-26] MEDS: LACTATED RINGERS 1,000 ML IV SCH (10:00)
[2018-11-26] MEDS: amLODIPine 5 MG TAB PO SCH (10:01)
[2018-11-26] MEDS: GABAPENTIN 100 MG CAP PO SCH ×3 (10:01→17:29)
[2018-11-26] MEDS: METOPROLOL SUCCINATE 50 MG TABER PO SCH (10:02)
[2018-11-26] MEDS: INSULIN LISPRO SLIDING SCALE 100 UNITS/ML VIAL SUBQ PRN (12:39)
[2018-11-26] MEDS: LEVOFLOXACIN 250 MG/D5 PREMIX 50 ML IV SCH (14:44)
[2018-11-26 16:00] VITALS: BP 131/63
[2018-11-26] MEDS: traMADol 50 MG TAB PO PRN (17:29)
[2018-11-26] MEDS: VANCOMYCIN 1GM/DEXT 5% PREMIX 200 ML IV SCH (20:53)
[2018-11-26] MEDS: MEROPENEM 500 MG in NACL 0.9% 50 ML IV SCH (21:00)
[2018-11-26] MEDS ORDERED: MEROPENEM 500 MG VIAL IV ONE (23:50)
[2018-11-27] VITALS (11 sets, daily range): BP systolic 117–154; BP diastolic 62–88
[2018-11-27] MEDS: LACTATED RINGERS 1,000 ML IV SCH ×2 (06:26→20:53)
[2018-11-27] MEDS: BLOOD GLUCOSE MONITORING 1 DEV DEV FS SCH ×4 (06:29→20:33)
[2018-11-27 07:21] LABS: BASOPHILS # (AUTO) 0.1 K/uL (0.00-0.22); BASOPHILS % (AUTO) 0.9 % (0.0-2.0); EOSINOPHILS # (AUTO) 0.2 K/uL (0-0.4); EOSINOPHILS % (AUTO) 1.7 % (0.0-4.0); HEMATOCRIT 26.5 % (36-48); HEMOGLOBIN 8.6 g/dL (12.0-16.0); LYMPHOCYTES # (AUTO) 2.8 K/uL (2.5-16.5); MEAN CORPUSCULAR HEMOGLOBIN 26 pg (27-31); MEAN CORPUSCULAR HGB CONC 32 g/dL (33-37); MEAN CORPUSCULAR VOLUME 81.2 fL (80-94); MONOCYTES % (AUTO) 8.2 % (1.7-9.3); NEUTROPHILS # (AUTO) 8.4 K/uL (1.8-7.7); NEUTROPHILS % (AUTO) 67.2 % (42.2-75.2); PLATELET COUNT (AUTO) 565 K/uL (140-450); RED BLOOD CELL COUNT(AUTO) 3.26 MIL/uL (4.20-5.40); RED CELL DISTRIBUTION WIDTH 13.8 % (11.6-13.7); WHITE BLOOD COUNT (AUTO) 12.6 K/uL (4.8-10.8)
[2018-11-27 07:33] LABS: ALBUMIN 1.7 g/dL (3.4-5.0); ANION GAP 14.2 (8-16); ASPARTATE AMINOTRANSFERASE 72 U/L (15-37); CARBON DIOXIDE 24.1 mmol/L (21-32); CHLORIDE 100 mmol/L (98-107); CREATININE 0.7 mg/dL (0.6-1.3); GLUCOSE 133 mg/dL (74-106); POTASSIUM 3.3 mmol/L (3.5-5.1); SODIUM SERUM 135 mmol/L (136-145); TOTAL BILIRUBIN 0.8 mg/dL (0.0-1.0); UREA NITROGEN, BLOOD 10 mg/dL (7-18)
[2018-11-27] MEDS ORDERED: POTASSIUM CHLORIDE 40 MEQ, LIDOCAINE MPF 1% - 5 mL VIAL 25 MG in NACL 0.9% 250 ML IV SCH (09:00)
[2018-11-27] MEDS: MEROPENEM 500 MG in NACL 0.9% 50 ML IV SCH ×2 (09:42→20:45)
[2018-11-27] MEDS: METOPROLOL SUCCINATE 50 MG TABER PO SCH (09:43)
[2018-11-27] MEDS: ATORVASTATIN 20 MG TAB PO SCH (09:43)
[2018-11-27] MEDS: amLODIPine 5 MG TAB PO SCH (09:43)
[2018-11-27] MEDS: GABAPENTIN 100 MG CAP PO SCH ×3 (09:43→16:10)
[2018-11-27] MEDS ORDERED: VANCOMYCIN 750 MG in DEXTROSE 5% 250 ML IV SCH (10:00)
[2018-11-27] MEDS ORDERED: LABETALOL 20 MG/4 ML VIAL IVP ONE (11:49)
[2018-11-27] MEDS ORDERED: BUPIVACAINE-MPF 0.5% 30 ML VIAL INJ ONE (11:52)
[2018-11-27] MEDS ORDERED: KETAMINE 500 MG/5 ML VIAL ONE (12:01)
[2018-11-27] MEDS ORDERED: BLOOD GLUCOSE MONITORING 1 DEV DEV FS SCH (12:15)
[2018-11-27] MEDS ORDERED: ONDANSETRON 4 MG/2 ML VIAL IVP PRN (12:15)
[2018-11-27] MEDS ORDERED: HYDROmorphone 1 MG/ML AMP IVP PRN (12:15)
[2018-11-27] MEDS: INSULIN LISPRO SLIDING SCALE 100 UNITS/ML VIAL SUBQ PRN ×2 (16:11→20:34)
[2018-11-28] VITALS: BP 146/66
[2018-11-28] MEDS: traMADol 50 MG TAB PO PRN ×2 (02:57→09:45)
[2018-11-28 07:17] LABS: BASOPHILS # (AUTO) 0.1 K/uL (0.00-0.22); EOSINOPHILS # (AUTO) 0.2 K/uL (0-0.4); EOSINOPHILS % (AUTO) 1.2 % (0.0-4.0); HEMATOCRIT 26.4 % (36-48); HEMOGLOBIN 8.5 g/dL (12.0-16.0); LYMPHOCYTES # (AUTO) 3.8 K/uL (2.5-16.5); LYMPHOCYTES % (AUTO) 28.1 % (20.5-51.1); MEAN CORPUSCULAR HEMOGLOBIN 26 pg (27-31); MEAN CORPUSCULAR HGB CONC 32 g/dL (33-37); MONOCYTES # (AUTO) 1.2 K/uL (0.8-1.0); MONOCYTES % (AUTO) 8.8 % (1.7-9.3); NEUTROPHILS # (AUTO) 8.3 K/uL (1.8-7.7); NEUTROPHILS % (AUTO) 60.9 % (42.2-75.2); PLATELET COUNT (AUTO) 577 K/uL (140-450); RED BLOOD CELL COUNT(AUTO) 3.25 MIL/uL (4.20-5.40); RED CELL DISTRIBUTION WIDTH 13.3 % (11.6-13.7); WHITE BLOOD COUNT (AUTO) 13.7 K/uL (4.8-10.8)
[2018-11-28] MEDS: BLOOD GLUCOSE MONITORING 1 DEV DEV FS SCH ×4 (07:30→21:43)
[2018-11-28 07:35] LABS: ALBUMIN 1.7 g/dL (3.4-5.0); ANION GAP 13.2 (8-16); ASPARTATE AMINOTRANSFERASE 63 U/L (15-37); CARBON DIOXIDE 23.8 mmol/L (21-32); CHLORIDE 99 mmol/L (98-107); CREATININE 0.7 mg/dL (0.6-1.3); GLUCOSE 154 mg/dL (74-106); SODIUM SERUM 132 mmol/L (136-145); TOTAL BILIRUBIN 0.6 mg/dL (0.0-1.0); UREA NITROGEN, BLOOD 9 mg/dL (7-18)
[2018-11-28 08:00] VITALS: BP 110/74
[2018-11-28] MEDS ORDERED: MEROPENEM 500 MG VIAL IV ONE (08:59)
[2018-11-28] MEDS: amLODIPine 5 MG TAB PO SCH (09:00)
[2018-11-28] MEDS: GABAPENTIN 100 MG CAP PO SCH ×3 (09:00→18:22)
[2018-11-28] MEDS: ATORVASTATIN 20 MG TAB PO SCH (09:01)
[2018-11-28] MEDS: MEROPENEM 500 MG in NACL 0.9% 50 ML IV SCH ×2 (09:01→21:36)
[2018-11-28] MEDS: METOPROLOL SUCCINATE 50 MG TABER PO SCH (09:01)
[2018-11-28] MEDS: INSULIN LISPRO SLIDING SCALE 100 UNITS/ML VIAL SUBQ PRN ×2 (13:30→21:38)
[2018-11-28 16:00] VITALS: BP 146/74
[2018-11-28] MEDS: LACTATED RINGERS 1,000 ML IV SCH (22:00)
[2018-11-29] VITALS: BP 136/77
[2018-11-29] MEDS: BLOOD GLUCOSE MONITORING 1 DEV DEV FS SCH ×4 (06:30→20:54)
[2018-11-29 08:00] VITALS: BP 140/74
[2018-11-29] MEDS: GABAPENTIN 100 MG CAP PO SCH ×3 (09:38→17:04)
[2018-11-29] MEDS: METOPROLOL SUCCINATE 50 MG TABER PO SCH (09:38)
[2018-11-29] MEDS: ATORVASTATIN 20 MG TAB PO SCH (09:39)
[2018-11-29] MEDS: amLODIPine 5 MG TAB PO SCH (09:39)
[2018-11-29] MEDS: traMADol 50 MG TAB PO PRN ×2 (09:40→13:40)
[2018-11-29] MEDS: MEROPENEM 500 MG in NACL 0.9% 50 ML IV SCH ×2 (09:44→20:40)
[2018-11-29] MEDS: INSULIN LISPRO SLIDING SCALE 100 UNITS/ML VIAL SUBQ PRN (11:48)
[2018-11-29 16:00] VITALS: BP 139/68
[2018-11-29] MEDS: LACTATED RINGERS 1,000 ML IV SCH (17:05)
[2018-11-29 20:00] VITALS: BP 125/62
[2018-11-30] VITALS: BP 122/67
[2018-11-30] MEDS: LACTATED RINGERS 1,000 ML IV SCH (02:35)
[2018-11-30] MEDS: BLOOD GLUCOSE MONITORING 1 DEV DEV FS SCH ×3 (05:35→16:25)
[2018-11-30 08:00] VITALS: BP 128/68
[2018-11-30] MEDS: MEROPENEM 500 MG in NACL 0.9% 50 ML IV SCH (10:26)
[2018-11-30] MEDS: METOPROLOL SUCCINATE 50 MG TABER PO SCH (10:29)
[2018-11-30] MEDS: GABAPENTIN 100 MG CAP PO SCH ×3 (10:29→17:00)
[2018-11-30] MEDS: amLODIPine 5 MG TAB PO SCH (10:29)
[2018-11-30] MEDS: ATORVASTATIN 20 MG TAB PO SCH (10:29)
[2018-11-30] MEDS ORDERED: MERO500P9 IV (11:04)
[2018-11-30] MEDS: INSULIN LISPRO SLIDING SCALE 100 UNITS/ML VIAL SUBQ PRN (12:34)
[2018-11-30 16:22] VITALS: BP 140/63
== END 2018-11-30 18:45 | DRG 856 ==
LOC: MED 12:17 → MTU 17:28
PROVIDERS: ADMIT Hospitalist; ATTEND Hospitalist
PROC: 0QBF0ZZ Excision of Left Patella, Open Approach (ICD-10-PCS; principal; 2018-11-29)
DX: T81.49XA Infection following a procedure, other surgical site, initial encounter (principal); A41.9 Sepsis, unspecified organism; L03.116 Cellulitis of left lower limb; N39.0 Urinary tract infection, site not specified; E44.1 Mild protein-calorie malnutrition; L02.416 Cutaneous abscess of left lower limb; Y83.8 Other surgical procedures as the cause of abnormal reaction of the patient, or of later complication, without mention of misadventure at the time of the procedure; Y92.89 Other specified places as the place of occurrence of the external cause; E11.40 Type 2 diabetes mellitus with diabetic neuropathy, unspecified; E11.22 Type 2 diabetes mellitus with diabetic chronic kidney disease; Z16.12 Extended spectrum beta lactamase (ESBL) resistance; G30.9 Alzheimer's disease, unspecified; F02.80 Dementia in other diseases classified elsewhere, unspecified severity, without behavioral disturbance, psychotic disturbance, mood disturbance, and anxiety; B95.61 Methicillin susceptible Staphylococcus aureus infection as the cause of diseases classified elsewhere; I12.9 Hypertensive chronic kidney disease with stage 1 through stage 4 chronic kidney disease, or unspecified chronic kidney disease; N18.3 Chronic kidney disease, stage 3 (moderate); B96.20 Unspecified Escherichia coli [E. coli] as the cause of diseases classified elsewhere; Z68.26 Body mass index [BMI] 26.0-26.9, adult; Z88.0 Allergy status to penicillin; Z88.2 Allergy status to sulfonamides; Z79.4 Long term (current) use of insulin; Z79.899 Other long term (current) drug therapy
CPT/HCPCS: 36415; 71045; 73562; 80053; 80202; 81001; 82948; 83605; 85025; 85610; 85730; 87040; 87070; 87081; 87086; 87186; 88304; 88311; 93005; 96361; 96365; 96366; 96367; 97110; 97530; 99285; J1644; J1815; J1956; J2001; J2185; J2405; J3370; J3480; J3490; J7030; J7060; J7120; Q0092